=== PATIENT | female | born 1975 | race Caucasian/White ===

== ENCOUNTER 2017-08-24 10:57 | Observation (INO) | payer BC ==
[2017-08-24] MEDS ORDERED: Clindamycin 900 MG IVPREMIX(* 900 MG/50 ML SDV IV ONE (12:00)
[2017-08-24] MEDS ORDERED: Scopolamine 1.5 mg* PATCH ONE (12:21)
[2017-08-24] MEDS ORDERED: LORazepam TAB(*) 1 MG ONE (12:21)
[2017-08-24] MEDS ORDERED: Naproxen TAB* 250 MG ONE (12:21)
[2017-08-24] MEDS ORDERED: Ondansetron INJ* 2 MG/ML VIAL ONE ×2 (12:21→16:28)
[2017-08-24] MEDS ORDERED: oxyCODONE SR TAB(*) 10 MG TAB.SR ONE (12:22)
[2017-08-24 12:31] LABS: Hematocrit 39 % (35-47); Hemoglobin 12.7 g/dl (12.0-16.0); Mean Corpuscular HGB Conc 33 g/dl (31-36); Mean Corpuscular Hemoglobin 27 pg (27-31); Mean Corpuscular Volume 83 fL (80-97); Mean Platelet Volume 7.3 um3 (7.4-10.4); Platelet Count 454 10^3/ul (150-450); Red Blood Count 4.72 10^6/ul (4.0-5.4); Red Cell Distribution Width 15 % (10.5-15)
[2017-08-24 12:45] LABS: INR 0.93 (0.77-1.02)
[2017-08-24] MEDS ORDERED: Lidocaine 1% INJ* 10 MG/ML 30 ML SDV ONE (12:58)
[2017-08-24] MEDS ORDERED: Heparin 2 UNITS/ML IVPREMIX* 2,000 ML IV ONE (12:58)
[2017-08-24] MEDS ORDERED: Iohexol 350 (CONTRAST) 200 ML MDV IV ONE (12:58)
[2017-08-24 13:12] LABS: EGFR Non-African American 89.8 (>60)
[2017-08-24 13:17] LABS: ABS Basophils 0.2 10^3/ul (0-0.2); ABS Eosinophils 0.2 10^3/ul (0-0.6); ABS Lymphocytes 2.2 10^3/ul (1.0-4.8); ABS Monocytes 0.5 10^3/ul (0-0.8); ABS Neutrophils 3.9 10^3/ul (1.5-7.7); ABS Nucleated RBC 0 10^3/ul; Nucleated Red Blood Cells % 0.2
[2017-08-24 13:18] LABS: Monocytes % 4 % (0-7)
[2017-08-24] MEDS ORDERED: fentaNYL* 50 MCG/ML 5 ML VIAL (250 MCG VIAL) ONE (13:18)
[2017-08-24] MEDS ORDERED: nitroGLYCERIN DRIP* 25,000 MCG/250 ML BTL ONE (13:18)
[2017-08-24] MEDS ORDERED: Midazolam* 1 MG/ML 10 ML VIAL (10 MG) ONE (13:18)
[2017-08-24] MEDS ORDERED: Ketorolac INJ* 30 MG/ML 1 ML VIAL ONE ×3 (13:18→15:48)
[2017-08-24] MEDS ORDERED: HYDROmorphone PCA* 20 MG/20 ML PCA.SYRING ONE (15:31)
[2017-08-24] MEDS ORDERED: fentaNYL* 50 MCG/ML 2 ML VIAL (100 MCG VIAL) ONE (15:55)
[2017-08-24] MEDS ORDERED: PROCHLORPERAZINE INJ 5 MG/ML 2 ML VIAL ONE (15:57)
[2017-08-24] MEDS ORDERED: HYDROmorphone PCA* 20 MG/20 ML PCA.SYRING PCA SCH (16:00)
[2017-08-24] MEDS ORDERED: HYDROmorphone INJ* 1 MG/ML CARPUJECT SYRINGE ONE (16:05)
[2017-08-24] MEDS ORDERED: LORazepam INJ* 2 MG/ML 1 ML VIAL IV PUSH PRN (17:40)
--- NOTE | 2017-08-24 17:49 | PN ---
Progress Note - Progress Note Date of Service: 08/24/17 SOAP: Subjective: Pain 4/10 in her low back (chronic). Denies pelvic pain currently. Denies nausea and emesis. Wants to sit up because her low back hurts laying supine. Objective: Selected Entries 08/24/17 17:16 Pulse Rate 67 Heart Rate 66 Respiratory 15 Rate Blood Pressure 179/100 (mmHg) Blood Pressure 117 Mean O2 Sat by Pulse 99 Oximetry NAD, AAO x 3 when aroused Abdomen is soft, tender to palpation at the suprapubic area Right groin is soft, nontender Dressing is CDI 2+ pulses at right FUEL MANAGER, pop and dpa RLE NM intact grossly Assessment: 42 YOF s/p Uterine Fibroid Arterial Embolization with pelvic pain and nausea controlled. The patient has chronic low back pain and laying supine is uncomfortable. Plan: 1. Standard post UFE IR protocol as ordered. 2. Add compazine PRN if zofran and scopolamine patch are insufficient. 3. Will adject bedrest order to end at 2000 hours instead of 2200. 4. Patient encouraged to use BILLET EXAMINER. 5. Hypertension to managed by hospitalists. (Patient is known hypertensive taking labetolol as an outpatient.)
[2017-08-24] MEDS ORDERED: Ondansetron 40 MG VIAL* 2 MG/ML 20 ML VIAL IV SCH ×2 (18:00→22:00)
[2017-08-24] MEDS: NS 0.9% 1000 ML* 1,000 ML IV SCH ×2 (18:40→22:24)
[2017-08-24] MEDS ORDERED: Ondansetron 40 MG VIAL* 2 MG/ML 20 ML VIAL IV PRN (19:28)
[2017-08-24] MEDS: PROCHLORPERAZINE INJ 5 MG/ML 2 ML VIAL IV PRN (20:53)
[2017-08-24] MEDS: Labetalol TAB* 200 MG PO SCH (21:00)
--- NOTE | 2017-08-24 22:35 | HP ---
CC: Dr. Fer Palma; Dr. Bruno Willis; Cristina Ortiz NP * HISTORY AND PHYSICAL: DATE OF ADMISSION: 08/24/17 PRIMARY CARE PROVIDER: Dr. Bruno Willis. PRIMARY TRUCK WASHER: Cristina Ortiz NP ATTENDING PHYSICIAN: Dr. Anthony Davis * (dictated by Ellen Hardy NP) . CHIEF COMPLAINT: Heavy menstrual periods. HISTORY OF PRESENT ILLNESS: Ms. Prescott is a 42-year-old female with past medical history significant for diverticulitis, irritable bowel syndrome, hypertension, anxiety, uterine fibroids, who was referred to Interventional Radiology with urinary symptoms secondary to multiple uterine fibroids. The patient was reporting heavy menstrual bleeding since the time she was a teenager and has been taking oral contraceptives most of her life to control the bleeding, which they do adequately. She also reports fibroids in most of the women in her family who have undergone hysterectomies. While taking oral contraceptive pills, she reports 5 days of menstrual bleeding requiring no more than 1 box of menstrual pads. Her main complaint being frequent urination needing to urinate every 1 to 2 hours depending on how much fluid she drinks, needing to get up 1 or 2 times nightly to urinate. She reported regular menstrual cycles and minimal cramping. Denied any dyspareunia. Due to her symptoms, she was referred to Dr. Palma for consultation for possible uterine fibroid embolization. The patient denies any recent fevers, chills, chest pain , shortness of breath, nausea, vomiting, or diarrhea. The patient presented to the hospital today and underwent an elective uterine fibroid embolization with Dr. Fer Palma. In the recovery room, the patient's pain and nausea are tolerable. She was noted to be hypertensive with systolic heart rates into the 170s and diastolics in the 100. Blood pressure cuff was adjusted and the patient's blood pressure was in the 160s/90s. She reports taking her labetalol this morning. The Hospitalists were asked to evaluate the patient for admission. PAST MEDICAL HISTORY: 1. Diverticulitis. 2. Irritable bowel syndrome. 3. Hypertension. 4. Anxiety. 5. Fibroids. 6. History of HPV positive in the past. PAST SURGICAL HISTORY: Status post wisdom tooth extraction. HOME MEDICATIONS: Include: 1. Labetalol 200 mg oral twice daily. 2. Effexor 75 mg oral daily. 3. Trazodone 100 mg oral daily at bedtime as needed for sleep. 4. Claritin 10 mg oral daily as needed for allergy symptoms. 5. Zovia 1/50 mg/mcg 1 tablet oral daily, the patient has not taken since 08/16. 6. Probiotic 1 tablet oral daily. ALLERGIES: 1. PENICILLIN. 2. AZITHROMYCIN. SOCIAL HISTORY: The patient denies tobacco or recreational drug use. She occasionally drinks alcohol. The patient's mother, Monserrat Yuen, will be her surrogate decision maker in the event she is unable to make decisions for herself. REVIEW OF SYSTEMS: I performed an 11-point review of systems. All the pertinent positives and negatives are mentioned in the history of present illness. The remaining review of systems are negative. PHYSICAL EXAMINATION GENERAL APPEARANCE: The patient is alert, pleasant, appears to be in no acute distress. VITAL SIGNS: Temperature 97.3, heart rate 66, respiratory rate 15, O2 sat 99% on 2 L via nasal cannula, blood pressure 161/99. HEENT: Normocephalic, atraumatic. Pupils are equal and reactive to light. Extraocular movements are intact. RESPIRATORY: There is no accessory muscle use and lungs are clear to auscultation bilaterally. CARDIOVASCULAR: Regular rate and rhythm. S1, S2 present. There are no murmurs , rubs, or gallops heard. ABDOMEN: Soft, nondistended, nontender. There are bowel sounds present x4. EXTREMITIES: No lower extremity edema. DP and PT pulses are 2+ and symmetric. MUSCULOSKELETAL: There is no clubbing or cyanosis noted. The patient exhibits good strength in all extremities. NEUROLOGICAL: The patient is alert and oriented x4, but drowsy. Cranial nerves II through XII are grossly intact. PSYCHOLOGICAL: The patient is calm and cooperative. SKIN: There are no rashes or abnormalities seen. DIAGNOSTIC STUDIES/LABORATORY DATA: Sodium 137, potassium 3.9, chloride 103, CO2 of 24, BUN 15, creatinine 0.17, glucose 91. White blood cell count 7.0, hemoglobin 12.7, hematocrit 39, platelet count 454. IMPRESSION: Ms. Prescott is a 42-year-old female with past medical history significant for diverticulitis, irritable bowel syndrome, hypertension, anxiety , fibroids, who presented to the hospital today for an elective uterine fibroid embolization with Dr. Fer Palma. She will be admitted as an observation. ASSESSMENT/PLAN: 1. Uterine fibroids. The patient is status post uterine fibroid embolization with Dr. Fer Palma. She will have a Dilaudid CLOTH DESIGNER overnight in addition to routine Toradol. She will be placed on Zofran around the clock. She will slowly have her diet advanced. She will be on strict bedrest until 10 p.m. tonight, at which time she will be able to ambulate as tolerated. She will have a urinary catheter in place until midnight. 2. Hypertension. The patient was hypertensive in the recovery room I suspect secondary to an ill-fitting blood pressure cuff and pain. She will be continued on her home labetalol. If she continues to be hypertensive with systolic blood pressures greater than 180 or diastolic pressures greater than 100, we will give her p.r.n. hydralazine. 3. History of anxiety. The patient will be continued on her home Effexor. 4. Fluids, electrolytes and nutrition: The patient will be on a clear liquid advanced diet as tolerated to regular. 5. Code status: Full code. 6. DVT prophylaxis: The patient is at moderate risk and will have SCDs until she is ambulating. 7. Disposition: Observation. TIME SPENT: Time for this admission was approximately 60 minutes, greater than half of that was spent with the patient discussing medications, past medical history, the events leading up to her arrival today, and performing a physical examination. The case has been reviewed with the attending, Dr. Davis, who agrees with the plan of care. Reviewed by DEBBY HOBSON 08/25/17 [id number]/[facility] #: [id number] MALLY
[2017-08-24] MEDS: Ketorolac INJ* 15 MG/ML 1 ML VIAL IV PUSH SCH (23:08)
[2017-08-24] MEDS: Ondansetron 40 MG VIAL* 2 MG/ML 20 ML VIAL IV SCH (23:09)
[2017-08-25] MEDS: NS 0.9% 1000 ML* 1,000 ML IV SCH (03:47)
[2017-08-25] MEDS: Ondansetron 40 MG VIAL* 2 MG/ML 20 ML VIAL IV SCH (03:52)
[2017-08-25] MEDS: Ketorolac INJ* 15 MG/ML 1 ML VIAL IV PUSH SCH (03:55)
[2017-08-25] MEDS: PROCHLORPERAZINE INJ 5 MG/ML 2 ML VIAL IV PRN (05:09)
--- NOTE | 2017-08-25 08:34 | PN ---
Progress Note - Progress Note Date of Service: 08/25/17 SOAP: Subjective: Mostly low back pain rated 3/10. Has "twinge" in right pelvis, but "not bad". "Quezy" overnight, but no emesis. Currently nausea is controlled. + void. Has walked to toilet and back. No CP or SOB. Objective: Selected Entries 08/25/17 08/25/17 03:49 07:38 Temperature 98.5 F Temperature Oral Source Pulse Rate 78 Respiratory 16 Rate Blood Pressure 172/92 (mmHg) Blood Pressure 110 Mean O2 Sat by Pulse 99 Oximetry NAD, Sleepy, but arousable to voice Abdomen is soft, minimal tenderness elicited when pressing suprapubic area Right groin is soft, nontender Dressing is CDI 2+ pulses at right TRASH COLLECTOR SUPERVISOR, pop and DPA RLE NM intact grossly Assessment: 42 YOF POD #1 s/p bilateral Uterine Artery Embolization with pain and nausea adequately controlled. Plan: 1. Transition IV to PO. 2. Encourage gentle advancement of diet. 3. Ambulate with assistance.
[2017-08-25] MEDS ORDERED: HYDROcodone/ACETAMIN 5-325 MG* 1 TAB PO PRN (08:35)
[2017-08-25] MEDS ORDERED: Venlafaxine EXT RELEASE CAP* 75 MG PO SCH (09:00)
--- NOTE | 2017-08-25 09:12 | RAD ---
CPT II Codes: G9500 Procedure(s) performed: * Pelvic arteriogram including the lower abdominal aorta, bilateral iliac arteries including the proximal portions of the superficial femoral arteries and femoral profundi. * Catheter arteriography of the bilateral uterine arteries. * Catheter embolization of the bilateral uterine arteries. Date of service: August 24, 2017 Indication for procedure: Low back pain and urinary frequency in the presence of multiple large uterine fibroids Comparison: None (report from pelvic ultrasound describing uterine fibroids from an outside clinic. Contrast: 150 mL Omnipaque 350 Fluoroscopy Time: 31.8 minutes Vessels Accessed: Percutaneous access was obtained with ultrasound guidance in the right common femoral artery in the retrograde direction towards the heart. Catheter arteriography was performed with the catheter tip in the following arteries: Left common iliac artery, Bilateral internal iliac arteries and Bilateral uterine arteries. Anesthesia: Conscious sedation with IV Fentanyl and Versed as well as local 1% lidocaine injected locally at the arteriotomy site. Conscious sedation time: Timeout: 1358 hours Case end: 1606 hours Total conscious sedation time: 2 hours and 8 minutes Additional medications: * 800 mcg IA nitroglycerin injected intermittently throughout the course of the procedure to alleviate arterial spasm. * Intra-arterial Toradol, 15 mg injected into each uterine artery, for a total of 30 mg intra-arterial. * Intravenous Toradol, 30 mg. * Compazine 10 mg IV * Prior to the procedure the patient received: Ativan 1 mg p.o. Naproxen sodium 250 mg p.o. OxyContin 10 mg p.o. Scopolamine patch 1.5 mg transdermal applied to the mastoid process. Zofran 4 mg IV Antibiotic prophylaxis was provided by Clindamycin 900 mg IV PROCEDURE NOTE AND INTRAPROCEDURAL IMAGING FINDINGS: Immediately prior to the procedure the patient signed consent after thoroughly discussing all risks and benefits. The patient was positioned on the fluoroscopy table in the supine position and the bilateral groins were shaved, prepped and draped in standard sterile fashion. Using fluoroscopic imaging the location of the right common femoral head was marked externally with a skin marker on the patient's groin. Utilizing sonographic guidance and palpation the right common femoral artery was cannulated overlying the right femoral head with an 21-gauge needle. An ultrasound image was saved. A microwire was slowly and smoothly advanced to the aortic bifurcation under fluoroscopic imaging. No buckling of the wire was visualized to indicate dissection. Over the wire a 5-[place]i catheter was advanced into the artery, the inner stiffener removed and the microwire was replaced with a 0.035" Bentsen wire which was advanced into the aorta. Finally the 5 [place]i catheter was exchanged for a 5 [place]i sidearm sheath. Utilizing a 0.035" wire and 5-[place] C2 catheter the contralateral left common iliac artery was accessed. The wire was advanced under fluoroscopic control to the proximal left superficial femoral artery. The C2 catheter was removed and over the wire a 5 [place] Merit Impress catheter was advanced over the iliac bifurcation and the reverse curve was formed in the lower abdominal aorta. Utilizing the reverse curve catheter and the wire the ipsilateral right common iliac artery was selected. With the tip of the catheter in the proximal most portion of the right internal iliac artery, angiography was performed to detail the branches of the right internal iliac artery and to locate the ostium of the right uterine artery. Arteriograms in multiple oblique projections were performed to best discern the branch point of the uterine artery. The uterine artery was selected and cannulated utilizing the combination 0.035" wire and 5-[place]i catheter. In order to ensure maximum arterial inflow for the purpose of particle distribution, a microcatheter and wire system were advanced into the 5-[place] catheter securing access into the uterine artery. Under careful fluoroscopic control access was maintained in the uterine artery while pushing back the 5-[place] catheter until the tip resided more superiorly in the internal iliac artery. Prior to embolization, contrast injection into the horizontal portion of the uterine artery demonstrated no large, obvious collateral blood flow to the ovary or a definite cervicovaginal branch descending inferiorly. Intra-arterial nitroglycerin was injected intermittently to alleviate arterial spasm. Under fluoroscopic control approximately 1 vial Hydropearl 600 um, 2 vials Embospheres 500-700 um and 1 vial Hydropearl 800 um were slowly injected into the right uterine artery to near complete stasis. Towards the end of embolization 15 mg of Toradol was injected intra-arterially. The microcatheter was pulled back into the more proximal descending portion of the uterine artery and contrast angiography depicted near complete stasis of the uterine artery. The microcatheter and microwire were removed. Contrast arteriography through the 5-[place]i catheter in the right internal iliac artery demonstrated patency and brisk flow through all branches of the internal iliac artery with the exception of the right uterine artery which demonstrates near complete stasis. The 0.035" wire was reinserted into the 5-[place]i catheter and the system was utilized to access the contralateral left internal iliac artery. With the tip of the 5 [place]i Merit Impress catheter in the proximal most portion of the left internal iliac artery, angiography was performed to detail the branches of the left internal iliac artery and to locate the ostium of the left uterine artery. Arteriograms in multiple oblique projections were performed to best discern the branch point of the uterine artery. Once the uterine artery was identified, the microcatheter and microwire were advanced into the parent catheter and, in conjunction with contrast angiography, the uterine artery was identified and selected with the microcatheter and wire system. Prior to embolization, contrast injection into the horizontal portion of the left uterine artery demonstrated no large, obvious collateral blood flow to the ovary or a definite cervicovaginal branch descending inferiorly. Intra-arterial nitroglycerin was injected intermittently to alleviate arterial spasm. Under fluoroscopic control approximately 1 vial Hydropearl 600 um, 1 vial Embospheres 500-700 um, 1 vial Hydropearl 800 um and 1 1/2 vials Embospheres 700-900 um were slowly injected into the left uterine artery to near complete stasis. Towards the end of embolization 15 mg of Toradol was injected intra-arterially. The microcatheter was pulled back into the more proximal descending portion of the uterine artery and contrast angiography depicted near complete stasis of the uterine artery. The microcatheter and microwire were removed. Contrast arteriography through the 5-[place]i catheter in the left internal iliac artery demonstrated patency and brisk flow through all branches of the internal iliac artery with the exception of the left uterine artery which demonstrates near complete stasis. The 5-Ku[place]i catheter and 0.035" wire were utilized to access the left external iliac artery which allowed a safe removal of the 5-[place]i Impress catheter. The wire was then removed from the sheath. The access sheath was removed and pressure was held at the common femoral arteriotomy for approximately 15 minutes. There were no signs of bleeding at the right groin access site and the site was dressed with sterile gauze and Tegaderm. The patient tolerated the procedure well and was transferred to the short stay recovery unit in stable condition for routine overnight observation and pain and nausea control. SUMMARY OF PROCEDURE, IMAGING FINDINGS AND INTERVENTIONS PERFORMED: 1. Diagnostic studies performed: * Arterial access was obtained at the right common femoral artery in the retrograde direction (i.e. towards the heart) with ultrasound guidance. A sonographic image was recorded. * Diagnostic catheter angiography (necessary to perform the appropriate interventions) was performed with the catheter tip in the left common iliac artery, bilateral internal iliac arteries and bilateral uterine arteries. * Catheter arteriography was performed of the inferior most abdominal aorta, bilateral iliac arterial system and specifically the bilateral uterine arteries. 2. Interpretation of diagnostic studies performed: * Greatly hypertrophied bilateral uterine arteries, slightly larger on the left than the right providing arterial flow to multiple large uterine fibroids. 3. Surgical interventions performed: * Near stasis embolization of the bilateral uterine arteries utilizing: * Right uterine artery: 1 vial Hydropearl 600 um, 2 vials Embospheres 500-700 um and 1 vial Hydropearl 800 um * Left uterine artery: 1 vial Hydropearl 600 um, 1 vial Embospheres 500-700 um, 1 vial Hydropearl 800 um and 1 and 1/2 vials Embospheres 700-900 um 4. Interpretation of interventions performed: * Final arteriography demonstrated near complete stasis of the bilateral uterine arteries.. PLAN: 1. The patient will be admitted to short stay surgical unit for routine overnight observation including pain and nausea control. 2. Outpatient clinical and imaging follow-up according to the Interventional Radiology protocol.
[2017-08-25] MEDS: Ondansetron ODT TAB* 4 MG PO SCH ×2 (10:01→15:05)
[2017-08-25] MEDS: Labetalol TAB* 200 MG PO SCH (10:02)
[2017-08-25] MEDS: Ketorolac TAB * 10 MG TAB PO SCH ×2 (10:02→15:07)
--- NOTE | 2017-08-25 14:52 | PN ---
Progress Note - Progress Note Date of Service: 08/25/17 SOAP: Subjective: No pain or nausea complaints. Just wants to go home. +Diet. Ambulating independently. Objective: Selected Entries 08/25/17 11:34 Temperature 97.8 F Temperature Oral Source Pulse Rate 59 Respiratory 16 Rate Blood Pressure 155/79 (mmHg) Blood Pressure 97 Mean O2 Sat by Pulse 99 Oximetry NAD, AAO x 3, Sitting up in chair Abd soft Groin soft, nontender Dressing is CDI Assessment: 42 YOF POD #1 s/p UFE with pain and nausea controlled with PO regimen. Plan: 1. Discharge to home. 2. Routine Interventional Radiology follow up will include RN clinic follow up telephone calls 08/28/17 and , 09/02/17 Follow up in the clinic in 6 weeks and 6 months. 3. Outpatient Rx regimen will include: Toradol 10 mg PO Q 6 hours x 3 days, dispense #15, 1 refill AFTER 3 days of Toradol, start Naproxen 250 mg PO every 12 hours x 3 days (DO NOT COMBINE TORADOL AND NAPROXEN) [place] 5/325 1 or 2 tablets PO Q 6 hours PRN x 5 days, dispense #30 (thirty), no refills Ativan 1 mg PO Q 12 hours PRN x 3 days, dispense #10 (ten) Zofran 4 mg PO Q 6 hours x 5 days, dispense #30, 1 refill Scopoloamine 1.5 mg TD patch: on the morning of Monday, replace current patch with new patch and wear x 3 days 4. Patient and her partner Garrick were advised to purchase laxative tea (E.g. Smooth Move) and drink one cup daily x 1 week to avoid constipation.
--- NOTE | 2017-08-25 15:27 | DCNOTE ---
Subjective Date of Service: 08/25/17 Interval History: Pt reports she is ready to go home. Diluadid SENIOR PROJECT COORDINATOR D/C this am and pt tolerating PO pain medication and diet. Some nausea around lunch time which now has resolved. Denies fever/chills. Feels stable on her feet. Understands discharge plan. Objective Active Medications: Hydrocodone Bitart/Acetaminophen ([place] 5-325 Tab*) 2 tab PO Q6H PRN PRN Reason: PAIN Ketorolac Tromethamine (Toradol Tab *) 10 mg PO Q6H COUNTS INCLUDE 234 BEDS AT THE [facility] Stop: 08/28/17 08:59 Last Admin: 08/25/17 15:07 Dose: 10 mg Labetalol HCl (Trandate Tab*) 200 mg PO BID COUNTS INCLUDE 234 BEDS AT THE [facility] Last Admin: 08/25/17 10:02 Dose: 200 mg Lorazepam (Ativan Inj*) 0.5 mg IV PUSH Q8H PRN PRN Reason: Anxiety and pain Ondansetron HCl (Zofran Odt Tab*) 4 mg PO Q6H COUNTS INCLUDE 234 BEDS AT THE [facility] Stop: 09/01/17 08:59 Last Admin: 08/25/17 15:05 Dose: 4 mg Prochlorperazine Edisylate (Compazine Inj*) 10 mg IV Q6H PRN PRN Reason: NAUSEA/VOMITING Last Admin: 08/25/17 05:09 Dose: 10 mg Venlafaxine HCl (Effexor Xr Cap*) 75 mg PO DAILY COUNTS INCLUDE 234 BEDS AT THE [facility] Last Admin: 08/25/17 10:01 Dose: Not Given Vital Signs - 8 hr 08/25/17 08/25/17 08/25/17 07:38 07:40 07:55 Temperature 98.4 F Pulse Rate 73 Respiratory 16 16 18 Rate Blood Pressure 155/83 (mmHg) O2 Sat by Pulse 99 94 95 Oximetry 08/25/17 08/25/17 09:34 11:34 Temperature 97.8 F Pulse Rate 59 Respiratory 16 16 Rate Blood Pressure 155/79 (mmHg) O2 Sat by Pulse 99 99 Oximetry Oxygen Devices in Use Now: None Appearance: 42 yo female sitting up in a chair in NAD, A+Ox3 Eyes: PERRLA Ears/Nose/Mouth/Throat: Mucous Membranes Moist Neck: NL Appearance and Movements; NL JVP Respiratory: Symmetrical Chest Expansion and Respiratory Effort, Clear to Auscultation Cardiovascular: NL Sounds; No Murmurs; No JVD, No Edema Abdominal: NL Sounds; No Tenderness; No Distention Extremities: No Edema, No Clubbing, Cyanosis, - - right groin site intact with CD+I dressing; soft, nontender, no noted eccymosis, erythema or hematoma. Neurological: Alert and Oriented x 3, NL Sensation, NL Gait, NL Muscle Strength and Tone Lines/Tubes/Other Access: Clean, Dry and Intact Peripheral IV Nutrition: Taking PO's Result Diagrams: 08/24/17 13:30 08/24/17 13:30 Assess/Plan/Problems-Billing Assessment: 42 yo female with PMH of diverticulitis, IBS, HTN, anxiety, uterine fibroids who underwent an elective uterine fibroid embolization with Dr. Palma. - Patient Problems (1) Status post embolization of uterine artery Comment: - Dispo per Dr. Palma - nancyay for DC to home. - Stable for DC to home - Reviewed discharge plan and new medications with patient. (2) HTN (hypertension) Comment: - Continue home Labetalol (3) Anxiety Comment: - Continue Effexor - Ativan prn (4) DVT prophylaxis Status and Disposition: OBV. Plan for DC to home.
[2017-08-25 16:00] VITALS: BP 172/82
--- NOTE | 2017-08-26 03:12 | DS ---
AMENDED REPORT NOW INCLUDES COSIGNER DESIGNATION - ESIGNED BEFORE ADJUSTMENTS DISCHARGE SUMMARY: DATE OF ADMISSION: 08/24/17 DATE OF DISCHARGE: 08/25/17 PROVIDER: Tyler Andersen NP. ATTENDING PHYSICIAN: Dr. Pate * (report dictated by Tyler Andersen NP). INTERVENTIONAL RADIOLOGIST: Dr. Palma. PRIMARY CARE PROVIDER: Dr. Willsi. PRIMARY SENIOR STEREO COMPILER TEAM LEAD: Cristina Ortiz NP. HOSPITAL STATUS: Observation. DISCHARGE DIAGNOSES: 1. Status post uterine fibroid embolization by Dr. Palma. 2. Heavy menstrual periods. 3. Fibroids. SECONDARY DIAGNOSES: 1. Diverticulitis. 2. Irritable bowel syndrome. 3. Hypertension. 4. Anxiety. 5. History of human papillomavirus positive. DISCHARGE MEDICATIONS: 1. Probiotic 1 tab p.o. daily. 2. Claritin 10 mg p.o. daily p.r.n. 3. Trazodone 100 mg p.o. daily at bedtime p.r.n. for sleep. 4. Effexor 100 mg p.o. daily. 5. Labetalol 200 mg p.o. b.i.d. NEW MEDICATIONS ON DISCHARGE: 1. Toradol 10 mg p.o. q.6 hours x3 days. After 3 days of Toradol, start Naproxen 250 mg p.o. q.12 hours x3 days. Do not combine Toradol and Naproxen. 2. [place] 5/325 mg 1 to 2 tablets p.o. q.6 hours p.r.n. x5 days. 3. Ativan 1 mg p.o. q.12 hours p.r.n. x3 days. 4. Zofran 4 mg p.o. q.6 hours x5 days. 5. Scopolamine 1.5 transdermal patch q.72 hours change on the morning of Monday08/28/17 and wear it x3 days and discontinue. HISTORY OF PRESENT ILLNESS AND HOSPITAL COURSE: Please see history and physical by Ellen Jackson NP, for full admission details, but in summary, this is a 42-year-old female with a past medical history significant for multiple uterine fibroids with heavy menstrual periods who underwent a uterine fibroid embolization today with Dr. Fer Palma. Postoperatively, she was started on Dilaudid CONTINUOUS WAVE OPERATOR, which was discontinued this morning and she was switched to p.o. pain medication. She has done well postoperatively and has had some cramping abdominal pain; however, this has improved throughout the day. She also had some intermittent nausea with no vomiting and this was also improved with antiemetics, and the patient has been ambulating around the unit and feels ready to go home today. The patient was seen and evaluated multiple times by Dr. Palma today and states the patient is stable for discharge to home. The patient's right groin site is soft and nontender with a clean, dry and intact dressing. The patient' s discharge instructions were reviewed in detail prior to discharge and the patient states understanding. The patient was instructed to return to emergency department with any concerning symptoms. DISCHARGE PLAN: 1. The patient is to be discharged to home. She was given detailed discharge instructions by Dr. Palma for her uterine fibroid embolization including her discharge paper work. 2. She will have followup from a nurse from [facility] within the next 2 to 3 days and 1 week post discharge and will follow up with Dr. Palma in his clinic in approximately 6 weeks. TIME SPENT: Approximately 60 minutes was spent on this discharge. TYLER ANDERSEN NP [id number] #: [id number] MALLY
== END 2017-08-25 16:08 | disposition home or self-care (01) ==
LOC: CHICATH 10:57 → INTOOBSV 18:27 → SSU 18:27
PROVIDERS: ADMIT Internal Medicine; ATTEND Internal Medicine
DX: D25.9 Leiomyoma of uterus, unspecified (principal); N92.0 Excessive and frequent menstruation with regular cycle; K57.92 Diverticulitis of intestine, part unspecified, without perforation or abscess without bleeding; K58.9 Irritable bowel syndrome, unspecified; I10 Essential (primary) hypertension
CPT/HCPCS: 36415; 37243; 75736; 76937; 80053; 84702; 85025; 85060; 85610; 96374; 96375; 99156; 99157; A9270-GY; C1769; C1884; C1887; G0378; J0780; J1170; J1644; J1885; J2250; J2405; J3010